=== PATIENT | female | born 1950 | race Caucasian/White ===

== ENCOUNTER 2019-10-10 14:07 | Outpatient (CLI) | payer MEDICARE, OTHER, SELFPAY ==
--- NOTE | ~2019-10-10 | XR_ITS ---
EXAMINATION: XR chest 2V DATE: 10/10/2019 14:56 INDICATION: Nonspecific reaction to tuberculin skin test TECHNIQUE: PA and lateral views of the chest were obtained. COMPARISON: Chest radiograph dated 03/30/2017 FINDINGS: The lungs remain clear with no focal airspace opacities, pulmonary edema, pleural effusion or pneumot horax. The cardiomediastinal silhouette is normal. Postoperative changes in the upper abdomen. Mild l ower thoracic dextrocurvature and mild upper lumbar levocurvature with severe thoracolumbar spondylos is. IMPRESSION: 1. Clear lungs. No acute cardiopulmonary disease. Reviewed, dictated and finalized at location A.
--- NOTE | ~2019-10-10 | US_ITS ---
EXAMINATION: US arterial ankle brachial ind DATE: 10/10/2019 14:54 INDICATION: Decreased lower limb pulses. Lower limb numbness, pain and tingling. Peripheral neuropath y. TECHNIQUE: Segmental pressures and plethysmographic and Doppler waveforms of the brachial and lower e xtremity arteries were obtained. COMPARISON: None. FINDINGS: Right and left brachial artery pressures of 123 mm Hg and 152 mm Hg, respectively, are borderline dis cordant (normal difference <= 30 mmHg). The right ankle-brachial index (AIDE) is at least 1.12 (normal >= 0.9-1.0) with right posterior tibial artery unable to be occluded. The right great toe-brachial index (TBI) is 1.93 (normal >= 0.65). Art erial Doppler waveforms are triphasic at both the right posterior tibial and dorsalis pedis arteries. The left AIDE is unable to be obtained due to inability to occlude the vessels. The left TBI is 1.26. Arterial Doppler waveforms are triphasic at both the left posterior tibial and dorsalis pedis arterie s. IMPRESSION: 1. No significant arterial occlusive disease to either lower limb with normal bilateral TBI's and tri phasic waveforms at the arteries of both ankles. 2. Borderline discordant right and left brachial artery pressures. Would repeat brachial pressure art pedro measurements and if a significant discordance is confirmed would consider CT angiogram of the aor tic arch and great vessels to assess for more proximal stenosis. Reviewed, dictated and finalized at location A. IMPRESSION: 1. No significant arterial occlusive disease to either lower limb with normal b ilateral TBI's and triphasic waveforms at the arteries of both ankles. 2. Borderline discordant right and left brachial artery pressures. Would repeat brachial pressure artery measurements and if a significant discordance is conf irmed would consider CT angiogram of the aortic arch and great vessels to asses s for more proximal stenosis.
== END 2019-10-10 14:08 | disposition home or self-care (01) ==
PROVIDERS: PCP Family Medicine; Visit Provider Nurse Practitioner Family
DX: R76.11 Nonspecific reaction to tuberculin skin test without active tuberculosis (principal); G62.9 Polyneuropathy, unspecified; R09.89 Other specified symptoms and signs involving the circulatory and respiratory systems
CPT/HCPCS: 71046; 93922

== ENCOUNTER → 2020-09-01 16:26 | Outpatient (CLI) | payer MEDICARE, OTHER, SELFPAY ==
--- NOTE | ~2020-09-01 | XR_ITS ---
XR knee RT 2V 09/01/2020 16:45 Indication: Right knee pain Procedure: 2 views right knee Comparison: No prior studies for comparison. Findings: There is severe osteoarthritis of the right knee with complete loss of joint space medially . No fracture or traumatic malalignment. There is a joint effusion. Impression: 1: Severe osteoarthritis of the right knee. Reviewed, dictated and finalized at location B. 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
== END ==
PROVIDERS: PCP Nurse Practitioner Family; Visit Provider Nurse Practitioner Family
DX: M25.561 Pain in right knee (principal); M17.11 Unilateral primary osteoarthritis, right knee
CPT/HCPCS: 73560

== ENCOUNTER 2020-09-25 16:09 | Outpatient (CLI) | payer MEDICARE, OTHER, SELFPAY ==
--- NOTE | ~2020-09-25 | MM_ITS ---
EXAMINATION: MM screening wyatt BI w tony HISTORY: Screening. Recent vaccination in the left arm a days prior to mammography.. TECHNIQUE: Craniocaudal and mediolateral oblique 3-D tomosynthesis images were obtained and synthetic 2-D images were generated. CAD analysis was submitted and interpreted. COMPARISON: Comparison to multiple prior studies sequentially, with oldest reviewed study dated 05/26. BREAST PARENCHYMAL COMPOSITION: There are scattered areas of fibroglandular density. FINDINGS: Interval development of enlarged left axillary lymph nodes. There are stable benign-appeari ng calcifications in the upper central aspect of the left breast without change compared with 019. There is increased reticulation in the left breast which is nonspecific. IMPRESSION: 1. Increased reticulation of the left breast with interval development of left axillary lymphadenopat hy. 2. Recommend left axillary ultrasound. BI-RADS Category 0: Incomplete: Needs additional imaging evaluation. Reviewed, dictated and finalized at location A. 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 Increased reticulation of the left breast with interval development of left axillary lymphadenopathy. 2. Recommend left axillary ultrasound. BI-RADS Category 0: Incomplete: Needs additional imaging evaluation.
== END 2020-09-25 16:10 | disposition home or self-care (01) ==
LOC: ANHIMG 16:17
PROVIDERS: Visit Provider Family Medicine
DX: Z12.31 Encounter for screening mammogram for malignant neoplasm of breast (principal); R92.8 Other abnormal and inconclusive findings on diagnostic imaging of breast
CPT/HCPCS: 77063; 77067

== ENCOUNTER 2020-12-10 15:47 | Outpatient (CLI) | payer MEDICARE, OTHER, SELFPAY ==
--- NOTE | ~2020-12-10 | US_ITS ---
US axilla LT 12/10/2020 16:19 Indication: Left axillary lymphadenopathy. Increased reticulation of the left breast. Procedure: High-resolution left axillary ultrasound Comparison: Mammogram dated 09/30/2020 Findings: There is a complex fluid collection in the left axilla measuring 8.1 x 5.7 x 2.7 cm. There are multiple lymph nodes of the left axilla, largest measuring 3 x 1.5 x 1.6 cm. Impression: 1: Left axillary lymphadenopathy, largest measuring 3 cm maximum dimension. Recommend left axillary b iopsy. 2: Complex fluid in the left axilla measuring 8.1 x 5.7 x 2.7 cm. Considerations include posttraumati c seroma/hematoma, although infection is not excluded. Recommend ultrasound-guided aspiration. BI-RADS CATEGORY 4-SUSPICIOUS ABNORMALITY Reviewed, dictated and finalized at location A. Impression: 1: Left axillary lymphadenopathy, largest measuring 3 cm maximum dimension. Rec ommend left axillary biopsy. 2: Complex fluid in the left axilla measuring 8.1 x 5.7 x 2.7 cm. Consideration s include posttraumatic seroma/hematoma, although infection is not excluded. Re commend ultrasound-guided aspiration. BI-RADS CATEGORY 4-SUSPICIOUS ABNORMALITY
== END 2020-12-10 15:48 | disposition home or self-care (01) ==
PROVIDERS: PCP Nurse Practitioner Family; Visit Provider Nurse Practitioner Family
DX: R92.8 Other abnormal and inconclusive findings on diagnostic imaging of breast (principal)
CPT/HCPCS: 76882

== ENCOUNTER 2020-12-19 13:01 | Outpatient (CLI) | payer MEDICARE, OTHER, SELFPAY ==
[2020-12-15 12:30] VITALS: BMI 53.3
--- NOTE | ~2020-12-19 | US_ITS ---
EXAMINATION: US biopsy lymph node DATE: 12/19/2020 14:33 INDICATION: Left axillary lymphadenopathy and loculated fluid collection. TECHNIQUE: The procedure including the risks and benefits was discussed with the patient. Risks discu ssed included bleeding and infection. The patient understood the risks and agreed to proceed. The sk in overlying the axilla was prepped and draped in usual sterile fashion. Anesthetic was administered with 1% lidocaine subcutaneously. A 14 gauge core biopsy needle was advanced under continuous ultra sound observation to the the largest 2.7 x 1.6 cm left axillary lymph node. 5 core biopsy specimens were obtained, 3 placed in RPMI media and 2 in formalin. The needle was removed and the entry site w as cleaned and dressed. Attention was then turned to the slightly more cephalad and medial loculated left axillary fluid collection. Additional 1% lidocaine was administered subcutaneously for local ane sthesia. An 18-gauge spinal needle was advanced under continuous ultrasound observation into the flui d collection. 35 mL of clear light mitchel-colored fluid was aspirated and sent to lab for Gram stain, cultures and cytology. Post procedure ultrasound demonstrated no hemorrhage. FINDINGS: Ultrasound images demonstrate multiple mildly enlarged left axillary lymph nodes. Subsequen t images demonstrate biopsy needles advanced into the largest 2.7 x 1.6 cm left axillary lymph node. Also observed is a 6.1 x 2.8 cm loculated fluid collection in the left axillary/subpectoral region. S ubsequent images demonstrate the spinal needle advanced into the fluid collection which was decompres sed at the conclusion of the procedure. IMPRESSION: 1. Successful Ultrasound-guided biopsy of a 2.7 x 1.6 cm left axillary lymph node. 2. Successful ultrasound-guided aspiration of a 6.1 x 2.8 cm loculated left axillary/subpectoral flui d collection yielding 35 mL of clear mitchel-colored fluid. Reviewed, dictated and finalized at location A. IMPRESSION: 1. Successful Ultrasound-guided biopsy of a 2.7 x 1.6 cm left axillary lymph no de. 2. Successful ultrasound-guided aspiration of a 6.1 x 2.8 cm loculated left axi llary/subpectoral fluid collection yielding 35 mL of clear mitchel-colored fluid.
== END 2020-12-19 13:02 | disposition home or self-care (01) ==
LOC: ANHIMG 13:04
PROVIDERS: PCP Nurse Practitioner Family; Visit Provider Nurse Practitioner Family
DX: C83.14 Mantle cell lymphoma, lymph nodes of axilla and upper limb (principal)
CPT/HCPCS: 38505; 76942; 88184; 88185; 88305; 88341; 88342

== ENCOUNTER 2020-12-29 16:45 | Outpatient (CLI) | payer MEDICARE, OTHER, SELFPAY ==
[2020-12-29 18:13] LABS: Lactate Dehydrogenase 542 U/L (313-618)
== END 2020-12-29 16:46 | disposition home or self-care (01) ==
PROVIDERS: PCP Nurse Practitioner; Visit Provider Internal Medicine Hematology & Oncology
DX: C85.94 Non-Hodgkin lymphoma, unspecified, lymph nodes of axilla and upper limb (principal)
CPT/HCPCS: 36415; 83615

== ENCOUNTER 2021-01-01 10:21 | Outpatient (CLI) | payer MEDICARE, OTHER, SELFPAY ==
--- NOTE | ~2021-01-01 | PE_ITS ---
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 TECHNIQUE: Blood glucose level was 111 mg/dL. 10.073 mCi of 18-fluorodeoxyglucose (18-FDG) was admini stered i.v. Low dose computed tomography (CT) images were acquired from the base of the brain to the proximal thighs for attenuation correction and anatomic localization. Automated exposure control was employed. Dose-length product (DLP) was 1283 mGy-cm. Positron emission tomography (PET) images were a cquired in the same distribution. COMPARISON: CT abdomen and pelvis 03/30/2017 FINDINGS: Head/neck: There is increased activity in the adenoids and palatine tonsils without abnormal CT corre late. There are enlarged bilateral internal jugular and right submandibular lymph nodes with increase d activity. For example, a 1.8 x 1.4 cm high right internal jugular node demonstrates maximum SUV of 4.4. There is increased activity in the glottis without CT correlate, likely physiologic. There is a mildly enlarged left supraclavicular lymph node without increased activity. Chest: There is no pneumonia or pleural effusion. There is a 2.4 x 1.6 cm left axillary lymph node wi th maximum SUV of 3.1. Cardiomegaly is noted. No pericardial effusion. There is mild mediastinal lymp hadenopathy, some with increased activity. The maximum SUV of normal mediastinum is 3.0. Abdomen/pelvis/proximal thighs: The maximum SUV of normal liver is 5.0. There are surgical changes in the stomach. There is mild splenomegaly, stable from 03/30/17. There is a ventral hernia containing no nobstructed transverse colon. The pancreas, and adrenal glands, and kidneys are normal. There are no dilated loops of bowel. There is no free intraperitoneal fluid. There is periportal, mesenteric, bila teral common iliac, bilateral external iliac, and bilateral inguinal lymphadenopathy, some with incre ased activity. For example, a 2.0 x 1.5 cm mesenteric node demonstrates maximum SUV of 4.1. There are chronic radiopaque foreign bodies in the abdomen. There is diffuse increased activity in the bone ma rrow without CT correlate, which may be bone marrow stimulation or inflammation from degenerative chelo nge. IMPRESSION: 1. Lymphadenopathy in the neck, chest, abdomen, and pelvis with increased activity, consistent with l ymphoma. Reviewed, dictated and finalized at location A. IMPRESSION: 1. Lymphadenopathy in the neck, chest, abdomen, and pelvis with increased activ ity, consistent with lymphoma.
[2021-01-01 11:00] LABS: Glucose Point of Care 111 mg/dl (65-105)
== END 2021-01-01 10:22 | disposition home or self-care (01) ==
LOC: ANHIMG 10:27
PROVIDERS: PCP Nurse Practitioner; Visit Provider Internal Medicine Hematology & Oncology
DX: C85.94 Non-Hodgkin lymphoma, unspecified, lymph nodes of axilla and upper limb (principal); R59.0 Localized enlarged lymph nodes
CPT/HCPCS: 78815; 82948; 93005; A9552

== ENCOUNTER 2021-01-01 12:37 | Outpatient (CLI) | payer MEDICARE, OTHER, SELFPAY ==
--- NOTE | 2021-01-01 12:49 | ECG_ITS ---
Measurements Intervals Gray Rate: 65 P: 35 AZ: 167 QRS: -24 QRSD: 123 T: 6 QT: 425 QTc: 443 Interpretive Statements SINUS RHYTHM INTRAVENTRICULAR CONDUCTION DELAY VOLTAGE CRITERIA FOR LVH BORDERLINE R WAVE PROGRESSION, ANTERIOR LEADS BORDERLINE T WAVE ABNORMALITY- INFERIOR LEADS BASELINE ARTIFACT- I, II, III, AVR, AVL, AVF, V4-V6 BORDERLINE ECG Electronically Signed On 01-01-2021 13:51:34 CDT by Hemal Dove D.O.
== END 2021-01-01 12:38 | disposition home or self-care (01) ==
LOC: ANHSURGERY 12:39
PROVIDERS: PCP Nurse Practitioner; Visit Provider Surgery
DX: Z01.810 Encounter for preprocedural cardiovascular examination (principal); I10 Essential (primary) hypertension
CPT/HCPCS: 93005

== ENCOUNTER → 2021-01-03 00:22 | Outpatient (CLI) | payer MEDICARE, OTHER, SELFPAY ==
[2021-01-03 17:56] LABS: SARS-CoV-2 RNA PCR Negative
== END ==
PROVIDERS: PCP Nurse Practitioner; Visit Provider Surgery
DX: Z01.812 Encounter for preprocedural laboratory examination (principal); Z20.822 Contact with and (suspected) exposure to COVID-19
CPT/HCPCS: C9803; U0003; U0005

== ENCOUNTER 2021-01-07 01:32 | Day surgery (SDC) | payer MEDICARE, OTHER, SELFPAY ==
[2021-01-01 11:59] VITALS: BMI 53.4
--- NOTE | 2021-01-06 13:12 | WPDANESEPPF ---
Anes - Initial Pre Proc Eval Procedure: Operation Date: 01/07/21 12:00 Proposed Procedures p Excisional Biopsy Of Left Axillary Lymph Node - Maxine Noble MD Date/Time: 01/06/21 13:12 Surgeon: Maxine Noble MD Pre Op Diagnosis: Lymphoma Patient Data Age: 70 Gender: F Height: 1.73 m Weight: 159.21 kg Allergies Allergy/AdvReac Type Severity Reaction Status Date / Time ampicillin AdvReac Mild Rash Verified 01/07/21 11:00 valacyclovir AdvReac Mild FINE RASH Verified 01/07/21 11:00 Home Medications Medication Instructions Recorded Confirmed Type aspirin 81 mg tablet,delayed 81 mg PO DAILY 09/19/19 01/07/21 History release biotin 10,000 mcg capsule 5,000 mcg PO DAILY 09/19/19 01/07/21 History calcium carbonate 600 mg calcium 600 mg PO DAILY 09/19/19 01/07/21 History (1,500 mg) tablet cholecalciferol (vitamin D3) 100 5,000 unit PO DAILY tablet 09/19/19 01/07/21 History mcg (4,000 unit) tablet multivitamin 1 tablet PO DAILY 09/19/19 01/01/21 History omega-3 fatty acids 1,000 mg 1,200 mg PO BID 09/19/19 01/01/21 History capsule sennosides 8.6 mg tablet 17.2 mg PO DAILY 09/19/19 01/07/21 History fluticasone propionate 50 2 spray INTRANASAL DAILY PRN 08/22/20 01/07/21 History mcg/actuation nasal spray,suspension loratadine 10 mg tablet 10 mg PO DAILY 08/22/20 01/07/21 History gabapentin 300 mg capsule 600 - 900 mg PO HS cap 12/12/20 01/07/21 History tramadol 50 mg tablet 50 mg PO Q8H PRN #42 tablet 12/16/20 01/07/21 Rx omeprazole 20 mg capsule,delayed 20 mg PO DAILY #90 cap 01/01/21 01/07/21 Rx release furosemide 20 mg PO DAILY 01/07/21 01/07/21 History hydralazine 50 mg PO TID 01/07/21 01/07/21 History levothyroxine [Euthyrox] 75 mcg PO DAILY 01/07/21 01/07/21 History naproxen sodium 440 mg PO DAILY 01/07/21 01/07/21 History omega 9-mrk-ebg-fish oil [Fish Oil] 1 cap PO DAILY 01/07/21 01/07/21 History pravastatin 40 mg PO HS 01/07/21 01/07/21 History Patient hx anesthesia problems: none Family hx anesthesia problems: none [facility] Past Medical History Medical History (Updated 01/06/21 @ 13:13 by Bj Henning DO) Essential (primary) hypertension 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 Hyperlipidemia Hypothyroid Left knee pain Lymphoma Normal colonoscopy (~01/10/15) No polyps, Dr Del Cid Peripheral neuropathy Positive PPD Prediabetes Right knee pain Surgical History Surgical History H/O excision of mass lipoma removal from back H/O hernia repair DIPAK and hernia repair Partial bowel obstruction with hernia repair S/P gastroplasty Family History Family History Father Hypertension Family history of diabetes mellitus in first degree relative Acute myocardial infarction Sibling Hypertension Family history of diabetes mellitus in first degree relative Family history of aortic aneurysm, Onset Age: 59 Patient's sister is Other Diabetes mellitus Family history of heart disease in male family member before age 55 Social History Social History Smoking status: Never smoker Second hand tobacco smoke exposure: No Alcohol intake: current Substance use: current Other substance usage details: CBD 20MG WITH THC 20MG EDIBLES PRN FOR PAIN/SLEEP Last use: 12/30/20 Living arrangements: alone Spiritual care concerns: No Anes - Eval Final PreProcedure Day of Procedure 01/06/21 13:12 Patient weight: super morbidly obese Heart: regular rate and rhythm Lungs: clear to auscultation and normal air movement Airway: Mallampati scale class II Neurological: alert and oriented Last oral intake: >/= 8 hours ASA classification: III Emergent: no Anesthetic plan: proceed Anesthesia type and monitoring: general ETT and standard monitoring Informed Con
[2021-01-07] VITALS (7 sets, daily range): BP systolic 139–151; BP diastolic 69–84; PULSE 62–81; RESP 14–20; TEMP 36–36.4; O2SAT 93–99
--- NOTE | 2021-01-07 11:41 | WPDHPUPDATE1 ---
History and Physical Update Update Date/Time: 01/07/21 11:41 History and Physical has been reviewed, including an updated exam of the patient. There are NO changes in the patient's condition. Risks, benefits, and alternatives have been discussed and questions answered. Patient agrees to proceed with procedure. Will setup for excisional biopsy left axillary lymphadenopathy.
[2021-01-07] MEDS: LACTATED RINGERS 1,000 ML 30 ML IV CONT (11:42)
[2021-01-07] MEDS: ceFAZolin 3 GM/D5W 100 ML 100 ML IVPB (12:16)
[2021-01-07] MEDS: BUPIVACAINE/EPINEPHRINE 0.5% 10 ML VIAL 50 ML INFILTRATE (12:57)
--- NOTE | 2021-01-07 13:02 | P.OP_ITS ---
Procedure Note - Detailed Date of Procedure 01/07/21 Pre-op Diagnosis Lymphoma Post-op Diagnosis same Procedure Performed Excisional biopsy left axillary lymphadenopathy Surgeon Maxine Noble MD Anesthesia general and local Indications 70-year-old female with a left axillary lymphadenopathy, previous ultrasound- guided needle biopsy significant for lymphoma. Oncology request excisional lymph node biopsy for further diagnosis Findings left axillary lymphadenopathy Description of Procedure The patient was taken the operating room placed in the supine position. After adequate induction of general anesthesia, the patient was prepped and draped in the normal sterile fashion. A time-out was then done to verify patient's identity, as well as the procedure being performed. I began by making an incision in the left axilla. This incision was taken down through the subcutaneous tissue and into the axillary space. Once into the left axilla, there was noted be multiple enlarged lymph nodes. There was a area of clustered lymphadenopathy and I excised this area. Once to the stalk of these lymph nodes, I did place a Ann clamp across the stalk. I then transected the lymph nodes and sent these to pathology for further review. The stalk was then tied off. Hemostasis was noted in the cavity. I then closed the axillary fascia with 3 0 Vicryl suture. The subcutaneous tissue was closed with 3 0 Vicryl suture. Skin was closed with 4 Monocryl subcuticular suture. The patient tolerated the procedure well and was extubated in the operating room postoperative. She will be sent to the recovery room in stable condition. Estimated Blood Loss 5 Drains No Packing No Pathology yes Complications No immediate complications Condition stable Disposition PACU
--- NOTE | 2021-01-07 13:16 | SUR.PHASEI ---
PT AWAKE AND ALERT. DENIES PAIN. RESP EVEN UNLABORED. TALKATIVE. NO IV UPON ARRIVAL TO PACU. RT HAND BRUISED
--- NOTE | 2021-01-07 13:30 | SUR.PHASEI ---
PT AWAKE AND ALERT. READY TO TRANSFER TO [facility]
== END 2021-01-07 14:45 | disposition home or self-care (01) ==
PROVIDERS: PCP Nurse Practitioner; Visit Provider Surgery
PROC: (CPT 38525; principal; 2021-01-07 12:00)
DX: C83.14 Mantle cell lymphoma, lymph nodes of axilla and upper limb (principal); I10 Essential (primary) hypertension; N28.9 Disorder of kidney and ureter, unspecified; M10.371 Gout due to renal impairment, right ankle and foot; E78.5 Hyperlipidemia, unspecified; E03.9 Hypothyroidism, unspecified; G62.9 Polyneuropathy, unspecified; R73.03 Prediabetes; R76.11 Nonspecific reaction to tuberculin skin test without active tuberculosis; Z79.82 Long term (current) use of aspirin; F12.90 Cannabis use, unspecified, uncomplicated; E66.01 Morbid (severe) obesity due to excess calories; Z68.43 Body mass index [BMI] 50.0-59.9, adult
CPT/HCPCS: 38525; 88184; 88185; 88239; 88264; 88271; 88275; 88305; 88333; 88341; 88342; 88360; A9270; J0330; J0690; J1100; J2704; J3010; J7120

== ENCOUNTER 2021-01-28 11:22 | Emergency (ER) | payer MEDICARE, OTHER, SELFPAY ==
--- NOTE | ~2021-01-28 | CT_ITS ---
EXAMINATION: CT abdomen pelvis w con DATE: 01/28/2021 16:47 INDICATION: Abdominal pain. Lymphoma. Constipation. Evaluate for small bowel obstruction. TECHNIQUE: Computed tomography (CT) of the abdomen and pelvis was performed with 100 cc Omnipaque 350 intravenous contrast. The dose-length product was 1428.94 mGy-cm. Automated exposure control and ite rative reconstruction technique were employed. COMPARISON: Pet/CT dated 01/01/2021. FINDINGS: Lung bases are unremarkable. Heart size normal. No significant pleural or pericardial effus ion. Stable postsurgical changes of the stomach. Upper abdominal ventral wall hernias are present wit h small multiple small soft tissue nodules at the location of the hernias, possibly lymphomatous invo lvement. There is periportal, mesenteric, retroperitoneal, iliac and inguinal lymphadenopathy, consis tent with known lymphoma. Splenomegaly. The liver, pancreas, adrenal glands are unremarkable. Right kidney within normal limits. There are is a nonobstructing 4 mm left renal stone. Small subcentimeter hypodensity of the left kidney, most lik sudha benign. Gallbladder is contracted. Nonobstructive bowel gas pattern. No free air or free fluid. T here is severe lumbar spondylosis. There are lytic lesions of the posterior elements at L3 and L4 whi ch may be degenerative, although metastatic disease or lymphomatous involvement may be considered. IMPRESSION: 1. No evidence for bowel obstruction. No acute abdominal abnormality. 2: Lymphadenopathy of the abdomen and pelvis, consistent with known lymphoma. Lytic lesions posterio r elements of L3 and L4 are nonspecific, although lymphomatous involvement or metastatic disease are not excluded. Reviewed, dictated and finalized at location A. IMPRESSION: 1. No evidence for bowel obstruction. No acute abdominal abnormality. 2: Lymphadenopathy of the abdomen and pelvis, consistent with known lymphoma. Lytic lesions posterior elements of L3 and L4 are nonspecific, although lymphom atous involvement or metastatic disease are not excluded.
[2021-01-28 11:47] VITALS: BP 129/78; PULSE 89; RESP 15; TEMP 36.2; O2SAT 97
[2021-01-28 13:00] LABS: Basophils Absolute Auto 0.1 K/mm3 (0.0-0.1); Basophils Percent Auto 0.7 % (0.2-1.2); Eosinophils Absolute Auto 0.2 K/mm3 (0-0.3); Eosinophils Percent Auto 2.7 % (0-4.4); Hematocrit 37.5 % (37.0-47.0); Hemoglobin 12.1 g/dL (12.0-15.0); Immature Granulocyte Absolute 0.02 K/mm3 (0.00-0.031); Immature Granulocyte Percent A 0.3 % (0-0.5); Lymphocytes Absolute Auto 1.46 K/mm3 (0.9-3.2); Lymphocytes Percent Auto 20.4 % (18.3-44.2); Mean Corpuscular HGB Conc 32.3 g/dl (32-36); Mean Corpuscular Hemoglobin 30.1 pg (26-34); Mean Corpuscular Volume 93.3 fl (80-100); Mean Platelet Volume 9.6 fl (7.4-10.4); Monocytes Absolute Auto 0.4 K/mm3 (0.1-0.6); Monocytes Percent Auto 4.9 % (2.6-8.5); Neutrophils Absolute Auto 5.1 K/mm3 (1.3-6.7); Platelet Count Result 243 k/mm3 (150-375); Red Blood Count 4.02 M/mm3 (4.2-5.4); Red Cell Distribution Width 14.2 % (11.5-14.5); White Blood Count 7.1 K/mm3 (4.5-10.0)
[2021-01-28 13:08] LABS: Alanine Aminotransferase 18 U/L (4-35); Albumin Level 3.9 g/dL (3.5-5.1); Alkaline Phosphatase 127 U/L (38-126); Anion Gap 8 mmol/L (8-16); Aspartate Amino Transferase 32 U/L (14-36); Bilirubin,Total 0.7 mg/dL (0.2-1.3); Blood Urea Nitrogen 22 mg/dL (7-17); Calcium 9.1 mg/dL (8.4-10.2); Carbon Dioxide 26 mmol/L (22-30); Chloride 105 mmol/L (98-107); Estimated CRCL calculation 72 ml/min; Estimated Glomerular Filt Rate 55; Glucose 105 mg/dL (65-105); Lipase 30 U/L (23-300); Potassium 3.8 mmol/L (3.4-5.0); Sodium 139 mmol/L (137-145)
[2021-01-28 13:53] LABS: Add Urine Microscopic? YES; Appearance Urine Clear (Clear); Bilirubin Urine 1+ (Negative); Blood Urine Negative (Negative); Color Urine Amber (Yellow); Glucose Urine UA Negative (Negative); Ketones Urine Negative (Negative); Leukocyte Esterase Ur Negative LEU/UL (Negative); Mucus Urine Few /lpf; Nitrate Urine Negative (Negative); Protein Urine 1+ mg/dL (Negative); RBC Urine 0-2 /hpf (0-2); Squamous Epithelial Cell Urine Few /hpf (Few)
[2021-01-28 13:54] LABS: Specific Grav Ur 1.035 (1.001-1.035)
[2021-01-28 14:18] VITALS: PULSE 87; RESP 16; TEMP 36.8; O2SAT 96
--- NOTE | 2021-01-28 16:01 | ED.ABDPAIN ---
HPI - Abdominal Pain General Chief Complaint: Abdominal Pain Stated Complaint: poss bowel obstruction, BM 6 days ago Time Seen by Provider: 01/28/21 16:01 Source: patient Mode of arrival: wheelchair Limitations: no limitations History of Present Illness HPI narrative: Patient is a 70-year-old with a history of hypertension, gastropexy, total abdominal hysterectomy, who presents for evaluation of mild abdominal distention, pain and constipation. Patient states she has been unable to have a normal bowel movement over the past 6 days. She reports small passing of liquid stool. She denies fever, chills, chest pain. No cough or shortness of breath. Mild, aching abdominal pain in the center of the abdomen without radiation to the flanks. It is not severe in nature. No associated nausea or vomiting. Patient in the past has been seeing Dr. Noble, she does have an abdominal/ventral hernia. She states that has been somewhat large compared to normal. No overlying skin changes. No redness or bruising. Related Data Home Medications Medication Instructions Recorded Confirmed aspirin 81 mg tablet,delayed 81 mg PO DAILY 09/19/19 01/21/21 release biotin 10,000 mcg capsule 5,000 mcg PO DAILY 09/19/19 01/21/21 calcium carbonate 600 mg calcium 600 mg PO DAILY 09/19/19 01/21/21 (1,500 mg) tablet cholecalciferol (vitamin D3) 100 5,000 unit PO DAILY tablet 09/19/19 01/21/21 mcg (4,000 unit) tablet multivitamin 1 tablet PO DAILY 09/19/19 01/21/21 omega-3 fatty acids 1,000 mg 1,200 mg PO BID 09/19/19 01/21/21 capsule sennosides 8.6 mg tablet 17.2 mg PO DAILY 09/19/19 01/21/21 fluticasone propionate 50 2 spray INTRANASAL DAILY PRN 08/22/20 01/21/21 mcg/actuation nasal spray,suspension loratadine 10 mg tablet 10 mg PO DAILY 08/22/20 01/21/21 gabapentin 300 mg capsule 600 - 900 mg PO HS cap 12/12/20 01/21/21 furosemide 20 mg PO DAILY 01/07/21 01/21/21 hydralazine 50 mg PO TID 01/07/21 01/21/21 levothyroxine [Euthyrox] 75 mcg PO DAILY 01/07/21 01/21/21 naproxen sodium 440 mg PO DAILY 01/07/21 01/21/21 omega 6-tai-mgh-fish oil [Fish Oil] 1 cap PO DAILY 01/07/21 01/21/21 pravastatin 40 mg PO HS 01/07/21 01/21/21 Allergies Allergy/AdvReac Type Severity Reaction Status Date / Time ampicillin AdvReac Mild Rash Verified 01/28/21 16:06 valacyclovir AdvReac Mild FINE RASH Verified 01/28/21 16:06 Review of Systems Review of Systems: Narrative: CONSTITUTIONAL: Denies fever, chills, or sweats. EYES: Denies visual changes, redness, or discharge. ENT: Denies rhinorrhea, congestion, sore throat, or otalgia. CARDIOVASCULAR: Denies chest pain, palpitations, or edema. RESPIRATORY: Denies cough or dyspnea. GASTROINTESTINAL: Reports mild abdominal pain, no nausea or vomiting GENITOURINARY: Denies dysuria or hematuria. SKIN: Denies rash or itching. MUSCULOSKELETAL: Denies back pain, joint pain, or myalgia. NEUROLOGIC: Denies headache, numbness, or weakness. 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 Hyperlipidemia Hypothyroid Left knee pain Lymphoma Normal colonoscopy (~01/10/15) No polyps, Dr Del Cid Peripheral neuropathy Positive PPD Prediabetes Right knee pain Surgical History Surgical History H/O excision of mass lipoma removal from back H/O hernia repair DIPAK and hernia repair H/O lymph node biopsy 01/07/21 Excisional biopsy left axillary lymphadenopathy Partial bowel obstruction with hernia repair S/P gastroplasty Family History Family History Father Hypertension Family history of diabetes mellitus in first degree relative Acute myocardial infarction Sibling Hypertension Family history of diabetes mellitus in first degree relative Family history of aor
[2021-01-28 16:20] VITALS: BP 157/63; PULSE 78; RESP 16; O2SAT 99
[2021-01-28 17:50] VITALS: BP 143/91; PULSE 76; RESP 18; O2SAT 98
== END 2021-01-28 17:55 | disposition home or self-care (01) ==
PROVIDERS: Emergency Medicine; Emergency Provider Emergency Medicine; PCP Nurse Practitioner
DX: K59.01 Slow transit constipation (principal); I10 Essential (primary) hypertension; E78.5 Hyperlipidemia, unspecified; E03.9 Hypothyroidism, unspecified; G62.9 Polyneuropathy, unspecified; R73.03 Prediabetes; Z85.72 Personal history of non-Hodgkin lymphomas; Z79.82 Long term (current) use of aspirin
CPT/HCPCS: 36415; 74177; 80053; 81001; 83690; 85025; 99284; Q9967

== ENCOUNTER → 2021-03-13 09:30 | Outpatient (CLI) | payer MEDICARE, OTHER, SELFPAY ==
[2021-03-13 20:12] LABS: SARS-CoV-2 RNA PCR Negative
== END ==
PROVIDERS: PCP Nurse Practitioner; Visit Provider Nurse Practitioner
DX: R68.89 Other general symptoms and signs (principal); Z20.822 Contact with and (suspected) exposure to COVID-19
CPT/HCPCS: C9803; U0003; U0005

== ENCOUNTER 2021-09-17 07:47 | Outpatient (RCR) | payer MEDICARE, OTHER, SELFPAY ==
[2021-09-02 17:26] LABS: Alanine Aminotransferase 21 U/L (4-35); Albumin Level 3.8 g/dL (3.5-5.1); Alkaline Phosphatase 288 U/L (38-126); Anion Gap 4 mmol/L (8-16); Aspartate Amino Transferase 49 U/L (14-36); Bilirubin,Total 0.5 mg/dL (0.2-1.3); Blood Urea Nitrogen 13 mg/dL (7-17); Calcium 8.6 mg/dL (8.4-10.2); Carbon Dioxide 30 mmol/L (22-30); Chloride 98 mmol/L (98-107); Estimated Glomerular Filt Rate 55; Glucose 122 mg/dL (65-110); Potassium 3.9 mmol/L (3.4-5.0); Sodium 132 mmol/L (137-145); Uric Acid 12.9 mg/dL (2.5-7.5)
[2021-09-03 08:26] LABS: Alanine Aminotransferase 21 U/L (4-35); Albumin Level 3.6 g/dL (3.5-5.1); Alkaline Phosphatase 255 U/L (38-126); Anion Gap 4 mmol/L (8-16); Aspartate Amino Transferase 48 U/L (14-36); Bilirubin,Total 0.6 mg/dL (0.2-1.3); Blood Urea Nitrogen 14 mg/dL (7-17); Calcium 8.6 mg/dL (8.4-10.2); Carbon Dioxide 32 mmol/L (22-30); Chloride 99 mmol/L (98-107); Estimated Glomerular Filt Rate > 60; Glucose 110 mg/dL (65-110); Phosphorus 4.2 mg/dL (2.5-4.5); Potassium 4.2 mmol/L (3.4-5.0); Sodium 135 mmol/L (137-145)
[2021-09-03 09:03] LABS: Phosphorus 4.4 mg/dL (2.5-4.5)
[2021-09-09 15:46] LABS: Alanine Aminotransferase 18 U/L (4-35); Albumin Level 3.5 g/dL (3.5-5.1); Alkaline Phosphatase 208 U/L (38-126); Anion Gap 7 mmol/L (8-16); Aspartate Amino Transferase 35 U/L (14-36); Bilirubin,Total 0.4 mg/dL (0.2-1.3); Blood Urea Nitrogen 13 mg/dL (7-17); Calcium 8.7 mg/dL (8.4-10.2); Carbon Dioxide 27 mmol/L (22-30); Chloride 106 mmol/L (98-107); Estimated Glomerular Filt Rate > 60; Glucose 152 mg/dL (65-110); Phosphorus 3.4 mg/dL (2.5-4.5); Potassium 3.9 mmol/L (3.4-5.0); Sodium 140 mmol/L (137-145); Uric Acid 6.2 mg/dL (2.5-7.5)
[2021-09-10 08:37] LABS: Alanine Aminotransferase 16 U/L (4-35); Albumin Level 3.5 g/dL (3.5-5.1); Alkaline Phosphatase 200 U/L (38-126); Anion Gap 5 mmol/L (8-16); Aspartate Amino Transferase 32 U/L (14-36); Bilirubin,Total 0.5 mg/dL (0.2-1.3); Blood Urea Nitrogen 12 mg/dL (7-17); Calcium 9.1 mg/dL (8.4-10.2); Carbon Dioxide 28 mmol/L (22-30); Chloride 108 mmol/L (98-107); Estimated Glomerular Filt Rate > 60; Glucose 109 mg/dL (65-110); Phosphorus 3.9 mg/dL (2.5-4.5); Potassium 3.9 mmol/L (3.4-5.0); Sodium 141 mmol/L (137-145)
[2021-09-17 08:14] LABS: Alanine Aminotransferase 16 U/L (4-35); Albumin Level 3.7 g/dL (3.5-5.1); Alkaline Phosphatase 153 U/L (38-126); Anion Gap 4 mmol/L (8-16); Aspartate Amino Transferase 34 U/L (14-36); Bilirubin,Total 0.7 mg/dL (0.2-1.3); Blood Urea Nitrogen 15 mg/dL (7-17); Calcium 8.5 mg/dL (8.4-10.2); Carbon Dioxide 29 mmol/L (22-30); Chloride 105 mmol/L (98-107); Estimated Glomerular Filt Rate > 60; Glucose 104 mg/dL (65-110); Phosphorus 4.1 mg/dL (2.5-4.5); Potassium 3.8 mmol/L (3.4-5.0); Sodium 138 mmol/L (137-145); Uric Acid 7.7 mg/dL (2.5-7.5)
== END 2021-12-01 23:59 | disposition home or self-care (01) ==
LOC: ANHLAB 07:47
PROVIDERS: PCP Nurse Practitioner Family
DX: C83.18 Mantle cell lymphoma, lymph nodes of multiple sites (principal)
CPT/HCPCS: 36415; 80053; 84100; 84311; 84550

== ENCOUNTER 2021-09-23 16:41 | Outpatient (CLI) | payer MEDICARE, OTHER, SELFPAY ==
[2021-09-23 17:19] LABS: Alanine Aminotransferase 20 U/L (4-35); Albumin Level 4.1 g/dL (3.5-5.1); Alkaline Phosphatase 130 U/L (38-126); Anion Gap 4 mmol/L (8-16); Aspartate Amino Transferase 33 U/L (14-36); Bilirubin,Total 0.6 mg/dL (0.2-1.3); Blood Urea Nitrogen 24 mg/dL (7-17); Calcium 8.6 mg/dL (8.4-10.2); Carbon Dioxide 24 mmol/L (22-30); Chloride 106 mmol/L (98-107); Estimated Glomerular Filt Rate 55; Glucose 183 mg/dL (65-110); Phosphorus 4.1 mg/dL (2.5-4.5); Potassium 4.4 mmol/L (3.4-5.0); Sodium 134 mmol/L (137-145); Uric Acid 7.8 mg/dL (2.5-7.5)
== END 2021-09-23 16:42 | disposition home or self-care (01) ==
LOC: ANHLAB 16:46
PROVIDERS: PCP Nurse Practitioner Family
DX: C83.18 Mantle cell lymphoma, lymph nodes of multiple sites (principal)
CPT/HCPCS: 36415; 80053; 84100; 84550

== ENCOUNTER 2022-01-26 14:46 | Outpatient (CLI) | payer MEDICARE, OTHER, SELFPAY ==
--- NOTE | ~2022-01-26 | MM_ITS ---
EXAMINATION: MM screening wyatt BI w tony HISTORY: Screening TECHNIQUE: Craniocaudal and mediolateral oblique 3-D tomosynthesis images were obtained and synthetic 2-D images were generated. CAD analysis was submitted and interpreted. COMPARISON: Comparison to multiple prior studies sequentially, with oldest reviewed study dated 11/21. BREAST PARENCHYMAL COMPOSITION: There are scattered areas of fibroglandular density. FINDINGS: There is a developing cluster of nonspecific calcifications in the upper outer quadrant of the right breast which have increased in number and density compared with prior studies. The left kan ast is stable without evidence for malignancy. IMPRESSION: 1. Developing cluster of right breast calcification. 2. Magnification views are recommended. BI-RADS Category 0: Incomplete: Needs additional imaging evaluation. Reviewed, dictated and finalized at location A.
== END 2022-01-26 14:47 | disposition home or self-care (01) ==
PROVIDERS: PCP Nurse Practitioner Family; Visit Provider Nurse Practitioner
DX: Z12.31 Encounter for screening mammogram for malignant neoplasm of breast (principal); R92.8 Other abnormal and inconclusive findings on diagnostic imaging of breast
CPT/HCPCS: 77063; 77067

== ENCOUNTER → 2022-02-19 09:12 | Outpatient (CLI) | payer MEDICARE, OTHER, SELFPAY ==
--- NOTE | ~2022-02-19 | MM_ITS ---
EXAMINATION: MM diagnostic mammo unilat RT HISTORY: Developing clustered microcalcifications in upper outer right breast reported on 01/26/2022 sc reening mammogram TECHNIQUE: Magnification ML, MLO and CC views and ML view of right breast were performed . CAD analys is was submitted and interpreted. COMPARISON: 01/26/2022, 09/25/2020, 08/28/2018bilateral screening mammogram examinations FINDINGS: A cluster of grouped microcalcifications system with benign fibroadenoma are noted in the u pper outer right breast. No suspicious microcalcifications are evident. IMPRESSION: 1. Benign finding; no mammographic evidence of malignancy 2. Routine mammographic screening is recommended BI-RADS Category 2: Benign finding(s). Reviewed, dictated and finalized at location B.
== END ==
PROVIDERS: Visit Provider Nurse Practitioner
DX: R92.8 Other abnormal and inconclusive findings on diagnostic imaging of breast (principal)
CPT/HCPCS: 77065

== ENCOUNTER 2022-08-10 12:30 | Outpatient (RCR) | payer MEDICARE, OTHER, SELFPAY ==
--- NOTE | 2022-06-08 13:53 | PTOPEVAL1 ---
Assessment and note entered by Linda Cutler, PT, DPT Evaluation Information Assessment Status Evaluation Diagnosis otoniel knee pain and L shoulder pain Onset chronic, 5+ years Subjective Information Pt states there is nothing you can do for the knees, they are gone . Pt states she recently went to see an orthopedic d/t limited shoulder ROM and pain. She states they recommended a shoulder replacement. She states generally she does not have much pain. She states her ROM and strength are limited, when moving to her end ROM she starts to get tingling feelings. Pt states she often has to guide her L hand with her R hand d/t weakness. Pt states she also has non-Hodgkin lymphoma. Reported Pain Level Pain Score 0: Self Report Assessment PT Clinical Summary Libby presents to therapy today with a diagnosis of otoniel chronic knee pain and chronic shoulder pain . Today she would like to be evaluated for her shoulder pain. She demonstrates significant limitations in both active and passive ROM of her shoulder. She is able to achieve about 50 deg of active flexion and abduction on the L. Passive range is limited d/t painful and audible clunking. Skilled physical therapy services are indicated to improve strength, ROM, and function, and to decrease pain with functional activity. Plan of Care Interventions Electrical Stimulation,Hot Pack/Cold Pack,Manual Lymph Drainage,Neuro Re-education,Patient/ Caregiver Educati,Therapeutic Activities, Therapeutic Exercise PT Services Indicated Yes Treatment Frequency and 2x/wk for 5 wks Duration These treatments will address the objective and functional deficits as defined above. The patient will be advanced safely and appropriately in order for the patient to progress towards his/her prior level of function. Additional exercises will be introduced and as well as a comprehensive home exercise program upon discharge, if needed, ?to ensure carryover of functional gains achieved in the clinic. This treatment plan has been reviewed and agreement upon by the patient.
--- NOTE | 2022-07-02 12:43 | PCPTNOTE ---
Patient called to cancel on 07/01/22 for this date. No reason given.
--- NOTE | 2022-07-13 17:10 | PTOPPROG ---
Assessment and note entered by Linda Cutler, PT, DPT Evaluation Information Assessment Status Progress Diagnosis otoniel knee pain and L shoulder pain Onset chronic, 5+ years Subjective Information Pt states she thinks her shoulder is doing better. She states she is able to do more and does not have any pain at rest. She reports her pain has decreased with activity and does not happen as often. Pt reports 0/10 at rest, and 6/10 at the worst with movement. She reports 50% improvement in overall symptoms. Assessment PT Clinical Summary Libby presents to therapy today for her progress report following 6 visits of skilled therapy. Today she demonstrates improve active ROM into flexion and abduction to ~100deg which has increased from ~55 deg at her initial evaluation. She demonstrates improved shoulder strength but this is still limited by pain and weakness. She reports less frequency of pain. She is progressing towards her goals and reports fair compliance with her HEP. Continuation of skilled physical therapy services are indicated to continue progressing her strength and ROM, to manage pain, and to promote unlimited functional mobility. Plan of Care Interventions Electrical Stimulation,Hot Pack/Cold Pack,Manual Lymph Drainage,Neuro Re-education,Patient/ Caregiver Educati,Therapeutic Activities, Therapeutic Exercise PT Services Indicated Yes Treatment Frequency and 1x/wk for 4 wks Duration These treatments will address the objective and functional deficits as defined above. The patient will be advanced safely and appropriately in order for the patient to progress towards his/her prior level of function. Additional exercises will be introduced and as well as a comprehensive home exercise program upon discharge, if needed, ?to ensure carryover of functional gains achieved in the clinic. This treatment plan has been reviewed and agreement upon by the patient.
--- NOTE | 2022-08-10 13:07 | PTOPDC ---
Assessment and note entered by Linda Cutler, PT, DPT Evaluation Information Assessment Status Discharge Diagnosis otoniel knee pain and L shoulder pain Onset chronic, 5+ years Subjective Information Pt states in general her shoulder has improved through therapy. She states today her shoulder is really sore today and she is not sure why. She reports doing her exercises 2 days in a row and normally she does every other. Reported Pain Level Pain Score 2: Self Report Assessment PT Clinical Summary Libby presents to therapy today for her progress report following 9 visits of skilled therapy to treat her L shoulder pain. Today she demonstrates active ROM that is the same as her last progress note. She does demonstrates some strength improvements but there is increased pain with increased resistance. Pt states she has learned a lot from therapy and would like to continue on her own. Therapist is agreeable to this POC. She will be discharged at this time with instructions to continue her HEP upon discharge and to follow up with her referring provider if needed. Plan of Care PT Services Indicated No Treatment Frequency and to be discharged Duration
== END 2022-08-10 15:42 | disposition home or self-care (01) ==
LOC: ANHGOSHPT 12:30
PROVIDERS: PCP Family Medicine; Visit Provider Orthopaedic Surgery
DX: M19.012 Primary osteoarthritis, left shoulder (principal); M17.0 Bilateral primary osteoarthritis of knee
CPT/HCPCS: 97110; 97112; 97140; 97161

== ENCOUNTER 2023-06-29 13:13 | Emergency (ER) | payer MEDICARE, OTHER, SELFPAY ==
--- NOTE | ~2023-06-29 | XR_ITS ---
EXAMINATION: XR chest 2V 06/29/2023 14:38 INDICATION: Lingering cough. Hypertension. PROCEDURE: 2 view chest COMPARISON: Comparison to multiple prior studies sequentially, with oldest reviewed study dated 09/05 fifth. FINDINGS: The lungs are clear. The cardiomediastinal silhouette is within normal limits. There are no pleural effusions. There is no pneumothorax suspected. Portacatheter tip in the SVC. There are s urgical changes in the left upper abdomen. IMPRESSION: 1: NO ACUTE CARDIOPULMONARY DISEASE. Reviewed, dictated and finalized at location B. ECURITY OFFICER
[2023-06-29 13:26] VITALS: BP 153/80; PULSE 82; RESP 16; TEMP 37.1; O2SAT 98
--- NOTE | 2023-06-29 14:09 | ED.URI ---
HPI - URI/Sore Throat General Chief Complaint: Urogenital-Female Stated Complaint: RUNNY NOSE/COUGH/BURNING URINATION Time Seen by Provider: 06/29/23 13:50 Source: patient, RN notes reviewed and old records reviewed Mode of arrival: other (using scooter to help with ambulation able to walk only short distance) Limitations: no limitations History of Present Illness HPI Narrative: 73 year old female who presents to express care with complaints of sinus drainage and cough and burning urination. Patient reports that she would like to be checked for pneumonia since she has had a lingering cough since having Covid in March. Patient reports that she did take the antiviral Paxlovid at that time. Ptient reports history of non-Hodgkin lymphoma which is in remission.Patient denies any acute fever, reports that cough is productive at times. States that she has burning with urination denies any nausea or vomiting, reports no suprapubic pain or any CVA tenderness.Patient reports that she did test self for COVID last week and was negative. MD elicited complaint: cough, rhinorrhea, nasal congestion and other (urinary burning) Pertinent past history: other (COVID march, non-hodgkin lymphoma in remission) Consistency: constant Pain scale (0-10): 2 Able to tolerate fluids by mouth: Yes Treatments prior to arrival: cold medicine and other (nasal spray) Related Data Home Medications Medication Instructions Recorded Confirmed aspirin 81 mg tablet,delayed 81 mg PO DAILY 09/19/19 06/29/23 release biotin 10,000 mcg capsule 5,000 mcg PO DAILY 09/19/19 06/29/23 calcium carbonate 600 mg calcium 600 mg PO DAILY 09/19/19 06/29/23 (1,500 mg) tablet (Calcium) cholecalciferol (vitamin D3) 100 5,000 unit PO DAILY 09/19/19 06/29/23 mcg (4,000 unit) tablet multivitamin 1 tablet PO DAILY 09/19/19 06/29/23 sennosides 8.6 mg tablet (senna) 17.2 mg PO DAILY 09/19/19 06/29/23 fluticasone propionate 50 2 spray intranasal DAILY PRN 08/22/20 06/29/23 mcg/actuation nasal Allergy Symptoms spray,suspension (Flonase Allergy Relief) naproxen sodium 220 mg tablet 440 mg PO DAILY 01/07/21 06/29/23 omega 3-vol-xut-fish oil 1,200 mg 1 cap PO DAILY 01/07/21 06/29/23 (144 mg-216 mg) capsule (Fish Oil) cetirizine 10 mg capsule (Zyrtec) 10 mg PO DAILY 03/11/23 06/29/23 rituximab 1,400 mg/11.7 mL (120 11.7 ml subcut .every two months 03/11/23 06/29/23 mg/mL)-hyaluronidase subcutaneous soln Allergies Allergy/AdvReac Type Severity Reaction Status Date / Time ampicillin AdvReac Mild Rash Verified 06/29/23 13:39 valacyclovir AdvReac Mild FINE RASH Verified 06/29/23 13:39 Review of Systems Review of Systems: CONSTITUTIONAL: Denies fever, chills, or sweats. EYES: Denies visual changes, redness, or discharge. ENT: Reports rhinorrhea, congestion, no sore throat, or otalgia. CARDIOVASCULAR: Denies chest pain, palpitations, or edema. RESPIRATORY: reports lingering cough denies dyspnea. GASTROINTESTINAL: Denies abdominal pain, nausea, vomiting, or diarrhea. GENITOURINARY: reports dysuria no visible hematuria. SKIN: Denies rash or itching. MUSCULOSKELETAL: Denies back pain,reports bilateral knee joint pain, or myalgia. NEUROLOGIC: Denies headache, numbness, or weakness. PSYCHIATRIC: Denies anxiety or depression. 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
== END 2023-06-29 15:09 | disposition home or self-care (01) ==
PROVIDERS: Emergency Provider Registered Nurse; PCP Family Medicine
DX: N39.0 Urinary tract infection, site not specified (principal); J06.9 Acute upper respiratory infection, unspecified; Z86.16 Personal history of COVID-19; I10 Essential (primary) hypertension; M10.9 Gout, unspecified; E78.5 Hyperlipidemia, unspecified; E03.9 Hypothyroidism, unspecified; M17.0 Bilateral primary osteoarthritis of knee; G62.9 Polyneuropathy, unspecified; R73.03 Prediabetes; Z79.82 Long term (current) use of aspirin
CPT/HCPCS: 71046; 81003; 87086; 87088; 99213; G0463

== ENCOUNTER → 2023-07-12 09:30 | Outpatient (CLI) | payer MEDICARE, OTHER, SELFPAY ==
--- NOTE | ~2023-07-12 | MM_ITS ---
EXAMINATION: MM diagnostic wyatt BI w tony HISTORY: Non-Hodgkin's lymphoma. TECHNIQUE: ML, MLO and CC 3-D tomosynthesis images of both breasts were performed and synthetic 2-D i mages were generated. CAD analysis was submitted and interpreted. COMPARISON: 02/19/2022iagnostic right mammogram 01/26/2022, ilateral screening mammogram examinations BREAST PARENCHYMAL COMPOSITION: There are scattered areas of fibroglandular density. FINDINGS: Right-sided port is noted. Interval diminished size of left axillary lymph nodes and resolution of left breast skin thickening s rudolph 09/2020 mammogram. Occasional bilateral benign calcifications are again noted. No suspicious mass or architectural disto rtion, malignant calcification, skin thickening or retraction or significant new or developing densit y is detected. IMPRESSION: 1. Benign findings 2. Routine mammographic screening is recommended. BI-RADS Category 2: Benign finding(s). Reviewed, dictated and finalized at location A. T CLERK
== END ==
PROVIDERS: Visit Provider Nurse Practitioner Family
DX: R92.8 Other abnormal and inconclusive findings on diagnostic imaging of breast (principal)
CPT/HCPCS: 77062; 77066; G0279

== ENCOUNTER 2024-04-24 17:56 | Emergency (ER) | payer MEDICARE, OTHER, SELFPAY ==
--- NOTE | 2024-04-24 17:57 | ED.FEMALEGU ---
HPI - Female Genitourinary General Chief complaint: Urogenital-Female Stated complaint: UTI SYMPTOMS Time Seen by Provider: 04/24/24 17:57 Source: patient Mode of arrival: ambulatory Limitations: no limitations History of Present Illness HPI Narrative: Libby is a 73-year-old female patient presenting to the clinic today with complaints of possible UTI. She reports that she has been having symptoms for 3 days with burning with urination and frequency. Has had some increased urinary incontinence the past couple weeks. Related Data Home Medications Medication Instructions Recorded Confirmed aspirin 81 mg tablet,delayed 81 mg PO DAILY 09/19/19 02/23/24 release biotin 10,000 mcg capsule 5,000 mcg PO DAILY 09/19/19 02/23/24 calcium carbonate (Calcium 600) 600 mg PO DAILY 09/19/19 02/23/24 cholecalciferol (vitamin D3) 100 5,000 unit PO DAILY 09/19/19 02/23/24 mcg (4,000 unit) tablet multivitamin 1 tablet PO DAILY 09/19/19 02/23/24 sennosides 8.6 mg tablet (senna) 17.2 mg PO DAILY 09/19/19 02/23/24 fluticasone propionate 50 2 spray intranasal DAILY PRN 08/22/20 02/23/24 mcg/actuation nasal Allergy Symptoms spray,suspension (Flonase Allergy Relief) naproxen sodium 220 mg tablet 440 mg PO DAILY 01/07/21 02/23/24 omega 7-fdj-jly-fish oil 1,200 mg 1 cap PO DAILY 01/07/21 02/23/24 (144 mg-216 mg) capsule (Fish Oil) cetirizine 10 mg capsule (Zyrtec) 10 mg PO DAILY 03/11/23 02/23/24 rituximab 1,400 mg/11.7 mL (120 11.7 ml subcut .every two months 03/11/23 02/23/24 mg/mL)-hyaluronidase subcutaneous soln Allergies Allergy/AdvReac Type Severity Reaction Status Date / Time ampicillin AdvReac Mild Rash Verified 02/23/24 09:11 valacyclovir AdvReac Mild FINE RASH Verified 02/23/24 09:11 Review of Systems Review of Systems: Pertinent positives per HPI. 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 Hyperlipidemia Hypothyroid Left knee DJD Left knee pain Normal colonoscopy (~01/10/15) No polyps, Dr Del Cid Peripheral neuropathy Positive PPD Prediabetes Right knee DJD Right knee pain Seasonal allergies Surgical History Surgical History H/O excision of mass lipoma removal from back H/O hernia repair DIPAK and hernia repair H/O lymph node biopsy 01/07/21 Excisional biopsy left axillary lymphadenopathy History of hysterectomy Partial bowel obstruction with hernia repair S/P gastroplasty Family History Family History Father Hypertension Family history of diabetes mellitus in first degree relative Acute myocardial infarction Sibling Hypertension Family history of diabetes mellitus in first degree relative Family history of aortic aneurysm, Onset Age: 59 Patient's sister is Other Diabetes mellitus Family history of heart disease in male family member before age 55 Social History Social History Smoking status: Never smoker Second hand tobacco smoke exposure: No Alcohol intake: current Substance use: current Other substance usage details: CBD 20MG WITH THC 20MG EDIBLES PRN FOR PAIN/SLEEP Last use: 12/30/20 Lack of Transportation: No Lack of Food: Never True Current Housing: I Have Housing Concerned About Future Housing: No Difficulty Paying Gas/Electric Bills: No Difficulty Paying for Meds: No Currently Unemployed: No Education: Bachelor
[2024-04-24 18:07] VITALS: BP 141/82; PULSE 94; RESP 16; TEMP 35.9; O2SAT 96
[2024-04-24 18:17] LABS: EDUAAPPEAR Cloudy; EDUABILI 1+ (Negative); EDUABLOOD Negative (Negative); EDUACOLOR1 Dark; EDUAGLUCOSE Negative (Negative); EDUAKETONE Trace (Negative); EDUALEUKO Trace (Negative); EDUANITRATE Negative (Negative); EDUAPH 5.5; EDUAPROTEIN Negative (Negative); EDUASPGRAVITY 1.025; EDUAUROBILI 0.2
== END 2024-04-24 18:19 | disposition home or self-care (01) ==
PROVIDERS: Emergency Provider Nurse Practitioner Family; PCP Family Medicine
DX: N39.3 Stress incontinence (female) (male) (principal); N30.00 Acute cystitis without hematuria; I10 Essential (primary) hypertension; E78.5 Hyperlipidemia, unspecified; E03.9 Hypothyroidism, unspecified; M17.0 Bilateral primary osteoarthritis of knee; G62.9 Polyneuropathy, unspecified; R73.03 Prediabetes; N28.9 Disorder of kidney and ureter, unspecified; M10.30 Gout due to renal impairment, unspecified site; Z79.82 Long term (current) use of aspirin
CPT/HCPCS: 81003; 87086; 99213; G0463